=== PATIENT | female | born 1975 | race Caucasian/White ===

== ENCOUNTER 2024-03-21 08:10 | Emergency (ER) | payer OTHER, SELFPAY ==
[2024-03-21 08:13] VITALS: BP 171/85; PULSE 70; TEMP 37.1; O2SAT 99; BMI 34.5
[2024-03-21] MEDS: TETRACAINE HCL 0.5% OP SOL 80 DROP/4 ML BOTTLE OP (08:45)
[2024-03-21] MEDS: FLUORESCEIN SODIUM 1 MG STRIP OP (08:46)
--- NOTE | 2024-03-21 08:47 | ED.EYEPROB1 ---
HPI - Eye Problem General Chief complaint: Eye Problems Stated complaint: SWOLLEN EYE Time Seen by Provider: 03/21/24 08:25 Source: patient Mode of arrival: walk-in History of Present Illness HPI Narrative: This patient drove herself to the emergency room complaining of redness and discomfort in her left eye. She states that Friday night she fell asleep with her contacts in. When she woke up Friday morning the eye was red and starting to get uncomfortable. She called her eye doctor but there was no end of the. She came to emergency room because of increasing pain and swelling in her eye. She does not have light sensitivity. She does not have a severe headache. She does not have any itching. The right eyes not affected. There is no purulent drainage or discharge. She is not using any eyedrops. She has no allergies. She has not put contacts back in. She says that this has happened to her before. Related Data Home Medications ?Medication ?Instructions ?Recorded ?Confirmed birthcontrol 03/21/24 Allergies Allergy/AdvReac Type Severity Reaction Status Date / Time No Known Drug Allergies Allergy Verified 03/21/24 08:18 Exam Narrative Exam Narrative: Awake alert pleasant. The right eye appears normal. The left eye there is conjunctival injection. The eyelid is somewhat swollen. There is no purulent drainage or discharge. There is no preauricular nodes on the left side. Extraocular muscles are normal pupillary light response is normal. Fluorescein staining was applied to the eye after the application of tetracaine drops. The tetracaine drops completely took away the pain and discomfort. After fluorescein staining a cobalt blue light was used and shows diffuse uptake throughout the mid central portion of the pupillary area. Constitutional Vital Signs, click to edit/add: Last Vital Signs Temp 98.7 F 03/21/24 08:13 Pulse 70 03/21/24 08:13 Resp 18 03/21/24 08:13 BP 171/85 H 03/21/24 08:13 Pulse Ox 99 03/21/24 08:13 O2 Del Method Room Air 03/21/24 08:13 Course Vital Signs Vital signs: Vital Signs Temperature 98.7 F 03/21/24 08:13 Pulse Rate 70 03/21/24 08:13 Respiratory Rate 18 03/21/24 08:13 Blood Pressure 171/85 H 03/21/24 08:13 Pulse Oximetry 99 03/21/24 08:13 Oxygen Delivery Method Room Air 03/21/24 08:13 Temperature 98.7 F 03/21/24 08:13 Pulse Rate 70 03/21/24 08:13 Respiratory Rate 18 03/21/24 08:13 Blood Pressure 171/85 H 03/21/24 08:13 Pulse Oximetry 99 03/21/24 08:13 Oxygen Delivery Method Room Air 03/21/24 08:13 MDM - Eye Problem MDM Narrative Medical decision making narrative: This patient has unfortunately self-inflicted inflammation of her cornea from leaving her contact lens into long. She has diffuse uptake of dye with fluorescein staining. She has great pain relief with tetracaine. We will place her on Acular drops antibiotic drops cold compresses eye rest and we want her to see her eye doctor tomorrow. I have advised her, and I believe she is compliant that she can use the tetracaine drops 1 drop every 6 hours x 2 more doses before she sees the eye doctor tomorrow. She is not to use it any further and she agrees to those recommendations Differential Diagnosis Differential diagnosis: Likely corneal abrasion, conjunctivitis and acute iritis Discharge Plan Discharge Stand Alone Forms: Portal Instructions Chief Complaint: Eye Problems Clinical Impression: Corneal abrasion of left eye due to contact lens Patient Disposition: Home, Self-Care Time of Disposition Decision: 08:51 Prescriptions / Home Meds: No Action birthcontrol Print Language: Lebanese Additional Instructions: Cold compresses/eye rest/Acular/gentamicin ophthalmic/see your eye doctor tomorrow Referrals: Physician,Non-Staff, MD [Primary Care Provider] - 1 week
== END 2024-03-21 09:00 | disposition home or self-care (01) ==
PROVIDERS: Emergency Provider Emergency Medicine Emergency Medical Services
DX: H18.822 Corneal disorder due to contact lens, left eye (principal)
CPT/HCPCS: 99283